=== PATIENT | female | born 1960 | race Caucasian/White ===

== ENCOUNTER → 2024-01-24 16:54 | Outpatient (REF) | payer SELFPAY | LOC: RAD 16:54 | PROVIDERS: ATTENDING PHYSICIAN Family Medicine | DX: E78.2 Mixed hyperlipidemia (principal) | CPT/HCPCS: 75571 ==

== ENCOUNTER → 2024-10-16 14:32 | Outpatient (REF) | payer OTHER, SELFPAY | LOC: RAD 14:32 | PROVIDERS: ATTENDING PHYSICIAN Specialist; FAMILY PHYSICIAN Family Medicine | DX: N20.0 Calculus of kidney (principal) | CPT/HCPCS: 74018 ==

== ENCOUNTER → 2025-08-06 09:42 | Outpatient (REF) | payer OTHER, SELFPAY | LOC: RAD 09:42 | PROVIDERS: ATTENDING PHYSICIAN Specialist; FAMILY PHYSICIAN Family Medicine | DX: N20.0 Calculus of kidney (principal) | CPT/HCPCS: 74018 ==